=== PATIENT | female | born 1935 | race Caucasian/White ===

== ENCOUNTER 2016-10-23 15:44 | Outpatient (CLI) | payer OTHER | END 2016-10-23 23:00 | LOC: RT SRH 15:44 | DX: Z01.818 Encounter for other preprocedural examination (principal); Z01.812 Encounter for preprocedural laboratory examination; N39.41 Urge incontinence | CPT/HCPCS: 90074; 90100; 95059 ==

== ENCOUNTER 2016-11-27 10:43 | Outpatient (CLI) | payer OTHER | END 2016-11-27 23:00 | LOC: LAB SRH 10:43 | DX: Z01.812 Encounter for preprocedural laboratory examination (principal) | CPT/HCPCS: 90047; 90074; 95059 ==

== ENCOUNTER 2016-12-08 16:39 | Outpatient (CLI) | payer OTHER | END 2016-12-08 23:00 | LOC: LAB SRH 16:39 | DX: R19.7 Diarrhea, unspecified (principal) | CPT/HCPCS: 90112; 90124; 90455 ==

== ENCOUNTER 2016-12-15 13:58 | Outpatient (CLI) | payer OTHER ==
--- NOTE | 2016-12-15 14:41 | DIAGNOSTIC IMAGING REPORT ---
PROCEDURE: XR CHEST 2 VIEW INDICATION: COUGH TECHNIQUE: PA and lateral views. COMPARISON: Chest 07/31/2011 FINDINGS: Right lower lobe infiltrate. Small right pleural effusion. Pacemaker and moderate cardiomegaly. Previous shoulder replacement. IMPRESSION: 1. Right lower lobe infiltrate and small pleural effusion.
== END 2016-12-15 23:00 ==
LOC: LAB SRH 13:58
DX: R05 Cough (principal); R53.1 Weakness
CPT/HCPCS: 90074; 90100; 90469; 95059